=== PATIENT | female | born 1965 | race Caucasian/White ===

== ENCOUNTER → 2020-09-30 12:34 | Outpatient (BNVA) | payer OTHER, SELFPAY | PROVIDERS: Visit Provider Orthopaedic Surgery | DX: M75.41 Impingement syndrome of right shoulder (principal) | CPT/HCPCS: 20610; 99212; J1040 ==

== ENCOUNTER → 2021-03-24 12:30 | Outpatient (BNVA) | payer OTHER, SELFPAY | PROVIDERS: Visit Provider Orthopaedic Surgery | DX: M75.41 Impingement syndrome of right shoulder (principal) | CPT/HCPCS: 20610; J1040 ==

== ENCOUNTER 2021-09-24 08:54 | Outpatient (REF) | payer OTHER, SELFPAY ==
--- NOTE | ~2021-09-24 | XR_ITS ---
EXAMINATION: XR SHOULDER, RIGHT CLINICAL INFORMATION: Right shoulder pain COMPARISON: 04/22/2019 TECHNIQUE: Three views of the right shoulder. FINDINGS: No acute findings compared to 04/22/2019. No fracture or subluxation. Small osteophytes are present at the mildly degenerated acromioclavicular and glenohumeral joints. No evidence of calcific tendinopathy. XR/XR shoulder RT min 2V IMPRESSION: * No acute fracture or malalignment at the right shoulder. * Chronic, mild osteoarthritis of the acromioclavicular and glenohumeral joints.
== END 2021-09-24 08:55 | disposition home or self-care (01) ==
LOC: HO.HOSX 08:54
PROVIDERS: PCP Internal Medicine; Visit Provider Physician Assistant
DX: M75.41 Impingement syndrome of right shoulder (principal)
CPT/HCPCS: 73030; 99212